=== PATIENT | male | born 1960 | race Caucasian/White ===

== ENCOUNTER → 2020-08-05 | Outpatient (CLI) | payer OTHER ==
[~2020-08-05] MED LIST: METO25TA2 PO; SIMV20TA PO; TELM40TA PO
== END ==
LOC: LAB 09:25
PROVIDERS: ATTEND Nurse Anesthetist, Certified Registered
DX: Z01.812 Encounter for preprocedural laboratory examination (principal); Z12.11 Encounter for screening for malignant neoplasm of colon; Z20.828 Contact with and (suspected) exposure to other viral communicable diseases
CPT/HCPCS: U0003

== ENCOUNTER → 2020-08-09 | Day surgery (SDC) | payer OTHER ==
[~2020-08-09] MED LIST changes: +IPRATRPIUM/ALBUTEROL 0.5/2.5MG 3 ML NEBU. NEB PRN; +IV RINGERS SOLUTION,LACTATED 1,000 ML IV SCH; +MIDAZOLAM HCL PF 2 MG/2 ML VIAL. IV ONE; +ONDANSETRON PF 4 MG/2 ML VIAL. IV PRN; +PROPOFOL 10,000 MCG/ML (20ML) VIAL IV ONE
[2020-08-09 10:09] VITALS: BP 113/66
--- NOTE | 2020-08-12 10:08 | PATHOLOGY ---
[facility] Accession Number: [id number] . 01 Material submitted: . cecum - CECAL POLYP . 02 Diagnosis: "Cecal polyp", biopsy: - Colonic mucosa with mild reactive/hyperplastic changes and reactive appearing lymphoid aggregates; no dysplasia seen. (See comment) (CLW:ganesh; 08/11/2020) S 08/12/2020 0958 Local . 02 Comment: Deeper sections are performed. Clinical and endoscopic correlation is recommended. (CLW:ganesh; 08/11/2020) . 02 Electronically signed: . Heather Martinez MD, Pathologist NPI- [id number] . 01 Gross description: . The specimen is received in formalin, labeled "Carlos Wardzel, cecal polyp". Received is a segment of pale frazier soft tissue measuring 0.5 cm in maximum dimensions. The specimen is submitted entirely in cassette A1. ([facility]; 08/10/2020) QAC/QA 08/10/2020 1321 Local . 02 Pathologist provided ICD-10: K63.9 . 02 CPT . 004403 Specimen Comment: A courtesy copy of this report has been sent to [phone], [phone] Specimen Comment: [id number] Specimen Comment: Report sent to DR MENSAH Performed at: 01 [facility] [address], [place], [place] [id number] MD Dexter Rosen MD Phone: [phone] Performed at: 02 [facility] [address], [place] [id number] MD Girma Banda MD Phone: [phone]
== END ==
LOC: SURG 07:55
PROVIDERS: ATTEND Emergency Medicine
DX: Z12.11 Encounter for screening for malignant neoplasm of colon (principal); K63.5 Polyp of colon; Z79.899 Other long term (current) drug therapy
CPT/HCPCS: 45380; J2704; J7120